=== PATIENT | male | born 1960 | race Caucasian/White ===

== ENCOUNTER 2020-10-30 15:00 | Outpatient (CLI) | payer MEDICAID | END 2020-10-30 15:01 | disposition critical access hospital (66) | LOC: EMS 15:00 | DX: Z00.8 Encounter for other general examination (principal) | CPT/HCPCS: A0425; A0429; A0999 ==

== ENCOUNTER 2020-10-30 15:15 | Emergency (ER) | payer MEDICAID ==
--- NOTE | 2020-10-30 15:26 | ED Physician Documentation ---
History of Present Illness - Stated complaint Stated Complaint: MHE - History obtained from History obtained from: Patient - Additonal information Additional information: 59-year-old gentleman who is quite healthy with no history of mental health issues presents with 2 days of hallucinations both auditory and visual. He has never had hallucinations before. The night before last he smoked a joint with a friend and wonders if it had something besides marijuana in it. He uses marijuana not infrequently but he is never had anything like this before. He is also been cutting down on his alcohol, but has not stopped cold turkey. No SI or HI. He was very anxious prior to arrival but feeling better now. Review of Systems Ten Systems: 10 systems reviewed and negative Constitutional: reports: Reviewed and negative Eyes: reports: Reviewed and negative Ears: reports: Reviewed and negative Nose: reports: Reviewed and negative PD PAST MEDICAL HISTORY - Present Medications Home Medications: Ambulatory Orders Medication Instructions Recorded Confirmed LORazepam [Ativan] 1 mg PO TID PRN #6 tablet 10/30/20 - Allergies Allergies/Adverse Reactions: Allergies Allergy/AdvReac Type Severity Reaction Status Date / Time No Known Drug Allergies Allergy Verified 10/30/20 15:26 PD ED PE NORMAL - Vitals Vital signs reviewed: Yes - General General: Alert and oriented X 3, Other (He does not appear shaky or like he is withdrawing. The lack of tachycardia and hypertension would also corroborate this.) - HEENT HEENT: PERRL, EOMI, Other (No tongue fasciculations) - Neck Neck: Supple, no meningeal sign, No bony TTP - Cardiac Cardiac: RRR, No murmur - Respiratory Respiratory: No respiratory distress, Clear bilaterally - Abdomen Abdomen: Non tender - Derm Derm: Normal color, Warm and dry - Neuro Neuro: Alert and oriented X 3, No motor deficit, No sensory deficit, Normal speech, Other (No asterixis) Results - Vitals Vitals: Vital Signs - 24 hr 10/30/20 15:22 Temperature 36.7 C Heart Rate 86 Respiratory 18 Rate Blood Pressure 121/74 O2 Saturation 99 Oxygen O2 Source Room air - Labs Labs: Laboratory Tests 10/30/20 10/30/20 10/30/20 15:32 15:32 15:32 WBC 8.3 RBC 4.17 L Hgb 13.1 L Hct 39.6 L MCV 95.0 H MCH 31.4 H MCHC 33.1 RDW 13.6 Plt Count 285 MPV 8.4 Neut # (Auto) 5.1 Lymph # (Auto) 2.3 Curry # (Auto) 0.8 Eos # (Auto) 0.1 Baso # (Auto) 0.0 Absolute Nucleated RBC 0.00 Nucleated RBC % 0.0 Sodium 138 Potassium 3.5 Chloride 101 Carbon Dioxide 27 Anion Gap 10.0 BUN 24 H Creatinine 0.9 Estimated GFR (MDRD) 86 L Glucose 112 H Calcium 9.3 Total Bilirubin 0.6 AST 21 ALT 26 Alkaline Phosphatase 44 Total Protein 7.0 Albumin 4.1 Globulin 2.9 Albumin/Globulin Ratio 1.4 Lipase 93 H TSH 1.10 Urine Color Urine Clarity Urine pH Ur Specific [place] Urine Protein Urine Glucose (UA) Urine Ketones Urine Occult Blood Urine Nitrite Urine Bilirubin Urine Urobilinogen Ur Leukocyte Esterase Urine RBC Urine WBC Ur Squamous Epith Cells Urine Bacteria Ur Microscopic Review Urine Culture Comments Salicylates < 6.0 Urine Opiates Screen Ur Oxycodone Screen Urine Methadone Screen Ur Propoxyphene Screen Acetaminophen < 10 L Ur Barbiturates Screen Ur Tricyclics Screen Ur Phencyclidine Scrn Ur Amphetamine Screen U Methamphetamines Scrn U Benzodiazepines Scrn Urine Cocaine Screen U Cannabinoids Screen Ethyl Alcohol < 5.0 10/30/20 17:38 WBC RBC Hgb Hct MCV MCH MCHC RDW Plt Count MPV Neut # (Auto) Lymph # (Auto) Curry # (Auto) Eos # (Auto) Baso # (Auto) Absolute Nucleated RBC Nucleated RBC % Sodium Potassium Chloride Carbon Dioxide Anion Gap BUN Creatinine Estimated GFR (MDRD) Glucose Calcium Total Bilirubin AST ALT Alkaline Phosphatase Total Protein Albumin Globulin Albumin/Globulin Ratio Lipase TSH Urine Color YELLOW Urine Clarity HAZY Urine pH 6.0 Ur Specific [place] >=1.030 H Urine Protein NEGATIVE Urine Glucose (UA) NEGATIVE Urine Ketones NEGATIVE Urine Occult Blood NEGATIVE Urine Nitrite POSITIVE H Urine Bilirubin NEGATIVE Urine Urobilinogen 0.2 (NORMAL) Ur Leukocyte Esterase TRACE H Urine RBC 0-5 Urine WBC >25 H Ur Squamous Epith Cells FEW Squamous Urine Bacteria Moderate H Ur Microscopic Review INDICATED Urine Culture Comments INDICATED Salicylates Urine Opiates Screen NEGATIVE Ur Oxycodone Screen NEGATIVE Urine Methadone Screen NEGATIVE Ur Propoxyphene Screen NEGATIVE Acetaminophen Ur Barbiturates Screen NEGATIVE Ur Tricyclics Screen NEGATIVE Ur Phencyclidine Scrn NEGATIVE Ur Amphetamine Screen NEGATIVE U Methamphetamines Scrn POSITIVE H U Benzodiazepines Scrn NEGATIVE Urine Cocaine Screen NEGATIVE U Cannabinoids Screen POSITIVE H Ethyl Alcohol PD MEDICAL DECISION MAKING - ED course ED course: 59-year-old gentleman presents with new onset hallucinosis which after subsequent work-up was demonstrated to be likely due to inadvertent methamphetamine use given to him by a friend. Given his age, differential diagnoses were considered, CT head was negative without mass, labs were otherwise basically normal, note made of pyuria but he has no urinary symptoms so treatment was not recommended nor offered. Departure - Departure Disposition: 01 Home, Self Care Clinical Impression: Hallucinosis, Methamphetamine intoxication Condition: Good Record reviewed to determine appropriate education?: Yes Prescriptions: LORazepam [Ativan] 1 mg PO TID PRN #6 tablet PRN Reason: Anxiety Comments: Try to get your marijuana from a reputable source. Return for new or worsening symptoms. Do not drink or drive while taking prescription Ativan.
[2020-10-30 15:37] LABS: BASOPHILS % (AUTO) 0.5 %; EOSINOPHILS # (AUTO) 0.1 10^3/uL (0.0-0.7); EOSINOPHILS % (AUTO) 0.7 %; HCT - HEMATOCRIT 39.6 % (42.0-52.0); HGB - HEMOGLOBIN 13.1 g/dL (14.0-18.0); LYMPHOCYTES # (AUTO) 2.3 10^3/uL (1.5-3.5); LYMPHOCYTES % (AUTO) 27.4 %; MEAN CORPUSCULAR HEMOGLOBIN 31.4 pg (27.0-31.0); MEAN CORPUSCULAR HGB CONC 33.1 g/dL (32.0-36.0); MEAN PLATELET VOLUME 8.4 fL (7.4-11.4); MONOCYTES # (AUTO) 0.8 10^3/uL (0.0-1.0); MONOCYTES % (AUTO) 9.6 %; NEUTROPHILS # (AUTO) 5.1 10^3/uL (1.5-6.6); NEUTROPHILS % (AUTO) 61.4 %; PLT - PLATELET COUNT 285 10^3/uL (130-450); RED BLOOD COUNT 4.17 10^6/uL (4.70-6.10); RED CELL DISTRIBUTION WIDTH 13.6 % (12.0-15.0); WHITE BLOOD COUNT 8.3 x10^3/uL (4.8-10.8)
[2020-10-30 16:02] LABS: ACETAMINOPHEN < 10 ug/mL (10-30); ALBUMIN 4.1 g/dL (3.2-5.5); ALBUMIN/GLOBULIN RATIO 1.4 (1.0-2.2); ALKALINE PHOSPHATASE 44 IU/L (42-121); ALT ALANINE AMINOTRANSFERASE 26 IU/L (10-60); AST ASPARTATE AMINOTRANSFERASE 21 IU/L (10-42); BILIRUBIN,TOTAL 0.6 mg/dL (0.2-1.0); BUN - BLOOD UREA NITROGEN 24 mg/dL (6-20); CALCIUM 9.3 mg/dL (8.5-10.3); CARBON DIOXIDE - CO2 27 mmol/L (21-32); CHLORIDE 101 mmol/L (101-111); CREATININE 0.9 mg/dL (0.6-1.2); ETOH - ETHANOL < 5.0 mg/dL; GFR - MDRD 86 (>89); GLUCOSE 112 mg/dL (70-100); LIPASE 93 U/L (22-51); POTASSIUM 3.5 mmol/L (3.5-5.0); SALICYLATE < 6.0 mg/dL; SODIUM 138 mmol/L (135-145)
--- NOTE | 2020-10-30 17:02 | CT Report ---
PROCEDURE: HEAD WO INDICATIONS: new onset hallucinosis TECHNIQUE: Noncontrast 4.5 mm thick angled axial sections acquired from the foramen magnum to the vertex. For r adiation dose reduction, the following was used: automated exposure control, adjustment of mA and/or kV according to patient size. COMPARISON: None. FINDINGS: Image quality: There is streak artifact seen through the skull base. CSF spaces: Basal cisterns are patent. No extra-axial fluid collections. Ventricles are normal in size and shape. Brain: No midline shift. No intracranial masses or hemorrhage. Davis-white matter interface is norm al. Skull and face: Calvarium and visualized facial bones are intact, without suspicious lesions. Sinuses: Visualized sinuses and mastoids are clear. IMPRESSION: Normal noncontrast head CT for age. Reviewed by: Reji Pryor MD on 10/30/2020 4:01 PM [facility] Approved by: Reji Pryor MD on 10/30/2020 4:01 PM [facility] Station ID: [id number]
[2020-10-30 17:43] LABS: MUDS CUTOFF CONCENTRATIONS CUTOFF CONC BELOW:
[2020-10-30 17:48] LABS: BILIRUBIN,URINE NEGATIVE (NEGATIVE); GLUCOSE, URINE (UA) NEGATIVE (NEGATIVE); KETONES,URINE (UA) NEGATIVE (NEGATIVE); LEUKOCYTE ESTERASE, URINE TRACE (NEGATIVE); NITRITE,URINE POSITIVE (NEGATIVE); OCCULT BLOOD,URINE NEGATIVE (NEGATIVE); PROTEIN,URINE NEGATIVE (NEGATIVE); UROBILINOGEN,URINE 0.2 (NORMAL) E.U./dL (NORMAL)
[2020-10-30 17:50] LABS: CLARITY,URINE HAZY (CLEAR)
[2020-10-30 18:00] LABS: BACTERIA,URINE Moderate /HPF (None Seen); COCAINE SCREEN URINE NEGATIVE (NEGATIVE); RBC,URINE 0-5 /HPF (0-5); SQUAMOUS EPITHELIAL CELL,UR FEW Squamous (<= Few); THC CANNABINOID SCREEN, URINE POSITIVE (NEGATIVE); WBC,URINE >25 /HPF (0-3)
[2020-10-30 18:01] LABS: AMPHETAMINE SCREEN,URINE NEGATIVE (NEGATIVE); BARBITURATE SCREEN,UR NEGATIVE (NEGATIVE); BENZODIAZEPINES SCREEN, URINE NEGATIVE (NEGATIVE); METHADONE SCREEN, URINE NEGATIVE (NEGATIVE); METHAMPHETAMINES SCREEN, URINE POSITIVE (NEGATIVE); OPIATE SCREEN, URINE NEGATIVE (NEGATIVE); OXYCODONE SCREEN, URINE NEGATIVE (NEGATIVE); PROPOXYPHENE SCREEN, URINE NEGATIVE (NEGATIVE); TRICYCLIC ANTIDEPRESSANT,URINE NEGATIVE (NEGATIVE)
[2020-10-30 19:00] VITALS: BP 143/101
== END 2020-10-30 19:06 | disposition home or self-care (01) ==
LOC: EDUNIT# → EDSEX → SUPCPDRO 15:15 → ED 15:15
DX: R44.0 Auditory hallucinations (principal); R44.1 Visual hallucinations; F15.929 Other stimulant use, unspecified with intoxication, unspecified
CPT/HCPCS: 36415; 80053; 80306; 80307; 80320; 80329; 81001; 81003; 83690; 84443; 85025; 87086; 87181; 99283; 99284

== ENCOUNTER 2020-11-03 12:27 | Emergency (ER) | payer MEDICAID ==
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
[2020-11-03 14:34] VITALS: BP 138/84
== END 2020-11-03 14:34 | disposition home or self-care (01) ==
LOC: ED 12:27
DX: S43.101A Unspecified dislocation of right acromioclavicular joint, initial encounter (principal); V18.0XXA Pedal cycle driver injured in noncollision transport accident in nontraffic accident, initial encounter; Y93.55 Activity, bike riding; Y92.830 Public park as the place of occurrence of the external cause
CPT/HCPCS: 99283; 99284

== ENCOUNTER 2021-03-31 13:31 | Outpatient (CLI) | payer MEDICAID ==
--- NOTE | 2021-03-31 14:32 | XRAY Report ---
PROCEDURE: Shoulder 3 View RT INDICATIONS: RIGHT SHOULDER PAIN TECHNIQUE: 3 views of the shoulder were acquired. COMPARISON: X-ray shoulder 11/03/2020 FINDINGS: Bones: There is increased widening at the acromioclavicular joint space measuring approximately 1.1 c m. There is an irregular osseous appearance of the distal right clavicle and acromial compared to ines or exam and demonstrates increased superior subluxation. No suspicious bony lesions. Visualized ribs appear intact. Soft tissues: No suspicious soft tissue calcifications. IMPRESSION: 1. Increased acromioclavicular distance as well as superior subluxation and osseous changes of the di stal right clavicle. Recommend correlation to recent surgical intervention. Otherwise, appearance shields ses concern for sprain. Bony changes within the distal clavicle and acromion could also represent pos tsurgical/posttraumatic changes versus erosion secondary to infection or inflammation if clinically a ppropriate. Reviewed by: Lizet Obando MD on 03/31/2021 2:31 PM PDT Approved by: Lizet Obando MD on 03/31/2021 2:31 PM PDT Station ID: [id number]
== END 2021-03-31 13:32 ==
LOC: DI.N 13:31
PROVIDERS: ATTEND Orthopaedic Surgery
DX: S43.111A Subluxation of right acromioclavicular joint, initial encounter (principal); R93.6 Abnormal findings on diagnostic imaging of limbs

== ENCOUNTER 2021-11-20 10:34 | Outpatient (CLI) | payer MEDICAID ==
--- NOTE | 2021-11-20 17:00 | MRI Report ---
PROCEDURE: Shoulder RT W/O INDICATIONS: RIGHT ROTATOR CUFF SYNDROME TECHNIQUE: Noncontrast oblique coronal T2 fast spin echo with fat saturation, oblique sagittal T1 spin echo and T2 fast spin echo with fat saturation, axial T1 spin echo and T2 fast spin echo with fat saturation t hrough the shoulder. COMPARISON: None. FINDINGS: Image quality: Excellent. Rotator cuff: There is mild T2 signal elevation throughout the supraspinatus and infraspinatus tendon s at the humeral insertion sites extending the muscular tendinous junctions, indicating tendinopathy. Superimposed high-grade pinhole tearing of the anterior supraspinatus tendon at the humeral insertio n site. Moderate grade intrasubstance tearing of the posterior supraspinatus tendon at the humeral in sertion site. Low-grade partial-thickness intrasubstance and bursal surface tearing of the mid and an terior infraspinatus tendon at the humeral insertion site extending the muscular tendinous junction. Low-grade partial-thickness articular surface tearing of the mid, inferior, and superior aspects of t he subscapularis tendon at the humeral insertion site. Teres minor tendon is intact. No rotator cuff atrophy. Bones and bursae: No bone marrow contusions or fractures. Acromioclavicular interval is widened to 1 3 mm. Mild acromioclavicular joint degeneration. The acromion demonstrates conventional anatomy, wit hout an os acromiale. No pathologic subacromial/subdeltoid bursal fluid is present. Capsule and soft tissues: Diffuse degenerative fraying of the glenoid labrum. The long head of the bi ceps tendon demonstrates normal location and morphology. The rotator interval appears normal, withou t fibrosis. The coracohumeral ligament is normal in thickness. IMPRESSION: 1. Supraspinatus and infraspinatus tendinopathy. 2. Full-thickness tearing of the anterior supraspinatus. Partial-thickness tearing of the remainder o f the supraspinatus, infraspinous, and subscapularis tendons. 3. Acromioclavicular joint osteoarthritis. Acromial clavicular separation. 4. Diffuse degenerative fraying of the glenoid labrum. Reviewed by: Derick Vanegas MD on 11/20/2021 4:59 PM PDT Approved by: Derick Vanegas MD on 11/20/2021 4:[address] [facility] Station ID: [id number]
== END 2021-11-20 10:35 | disposition home or self-care (01) ==
LOC: DI 10:34
PROVIDERS: ATTEND Orthopaedic Surgery
DX: M75.121 Complete rotator cuff tear or rupture of right shoulder, not specified as traumatic (principal); M19.011 Primary osteoarthritis, right shoulder

== ENCOUNTER 2022-09-25 16:12 | Outpatient (CLI) | payer MEDICAID | END 2022-09-25 16:13 | disposition left against medical advice (07) | LOC: EMS 16:12 | DX: T40.1X1A Poisoning by heroin, accidental (unintentional), initial encounter (principal) ==

== ENCOUNTER 2023-03-10 01:02 | Emergency (ER) | payer MEDICAID ==
--- NOTE | 2023-03-10 01:23 | ED Physician Documentation ---
PD HPI HEENT - Stated complaint Stated Complaint: EAR PX/PUGA - Chief complaint Chief Complaint: Heent - History obtained from History obtained from: Patient - Additional information Additional information: HPI from patient. Patient c/o bilateral ear pain but predominantly left-sided. Initially he says this started last night, but he goes on to describe the symptoms being present for at least the past several days. He also describes dizziness, "hissing" (per patient) sound; the dizziness and hissing has been intermittent for several days without inciting/exacerbating/ameliorating factors. He denies injury, denies discharge from either ear. HPI is somewhat challenging, as patient frequently tangential, asking about cochlear implants and whether it would be possible for him to have a cochlear implant without his knowledge. He also says he recently came across a piece of paper within his possessions that had the word ricin on it. PD PAST MEDICAL HISTORY - Past Medical History Past Medical History: No - Past Surgical History Past Surgical History: Yes General: Cholecystectomy - Present Medications Home Medications: Ambulatory Orders Medication Instructions Recorded Confirmed Meloxicam [Mobic] 7.5 mg PO BID PRN #20 tablet 11/03/20 - Allergies Allergies/Adverse Reactions: Allergies Allergy/AdvReac Type Severity Reaction Status Date / Time No Known Drug Allergies Allergy Verified 11/03/20 13:13 - Social History Does the pt smoke?: No Smoking Status: Never smoker Does the pt drink ETOH?: Yes Does the pt have substance abuse?: No - Immunizations Immunizations are current?: No - POLST Patient has POLST: No PD ED PE NORMAL - Vitals Vital signs reviewed: Yes - General General: Alert and oriented X 3, No acute distress, Well developed/nourished - HEENT HEENT: Other (bilateral EOC are narrow. trace erythema right EOC, mild erythema left EOC. both TMs are unremarkable. There is a small flesh-colored pedunculated lesion in left EOC) Results - Vitals Vitals: Vital Signs - 24 hr 03/10/23 01:08 Temperature 36.7 C Heart Rate 86 Respiratory 16 Rate Blood Pressure 162/110 H O2 Saturation 96 Oxygen O2 Source Room air PD Medical Decision Making - ED course Complexity details: considered differential, d/w patient ED course: mild erythema of left EOC; given cortisporin otic (drops instilled bilaterally in ED, given trace erythema of right EOC, but instructed to use them on the left ear for next 5 days, given symptoms are predominantly left-sided with correlative findings on exam). The flesh-colored lesion in the left EOC is uncertain significance, but does not appear to be infectious (no erythema or swelling focal to the lesion). Patient is homeless. He has paranoid delusions as noted in HPI, asking about cochlear implants and whether it's possible he has had one implanted without his knowledge. He also is preoccupied with a piece of paper he says he recently found within his possessions that had the word "ricin" on it. He is calm and amenable to reassurance at this time, not endorsing SI/HI. He is cooperative and follows instructions and there is no indication of immediate danger to self or others. Departure - Departure Disposition: 01 Home, Self Care Clinical Impression: Otitis externa Qualifiers: Otitis externa type: unspecified type Chronicity: acute Laterality: left Qualified Code(s): H60.502 - Unspecified acute noninfective otitis externa, left ear Condition: Good Instructions: ED Otitis Externa Comments: Use the antibiotic drops as follows: 4 drops in left ear three times per day for one week Forms: PCP List Discharge Date/Time: 03/10/23 02:21
[2023-03-10 01:26] VITALS: BP 162/110; O2SAT 96
[2023-03-10] MEDS: NEOMYCIN/POLYMYX/HC OTIC DROPS EACHEAR STA (02:15)
== END 2023-03-10 02:21 | disposition home or self-care (01) ==
LOC: ED 01:02
DX: H60.502 Unspecified acute noninfective otitis externa, left ear (principal)
CPT/HCPCS: 99283; A9270

== ENCOUNTER 2023-04-04 19:54 | Outpatient (CLI) | payer MEDICAID | END 2023-04-04 19:55 | disposition critical access hospital (66) | LOC: EMS 19:54 | DX: R06.00 Dyspnea, unspecified (principal); R05.9 Cough, unspecified; Z59.00 Homelessness unspecified | CPT/HCPCS: A0425; A0429; A0999 ==

== ENCOUNTER 2023-04-04 20:18 | Emergency (ER) | payer MEDICAID ==
[2023-04-04 20:48] LABS: BASOPHILS % (AUTO) 0.1 %; EOSINOPHILS # (AUTO) 0.1 10^3/uL (0.0-0.7); EOSINOPHILS % (AUTO) 0.8 %; HCT - HEMATOCRIT 36.1 % (42.0-52.0); HGB - HEMOGLOBIN 11.8 g/dL (14.0-18.0); LYMPHOCYTES # (AUTO) 2.6 10^3/uL (1.5-3.5); MEAN CORPUSCULAR HEMOGLOBIN 29.9 pg (27.0-31.0); MEAN CORPUSCULAR HGB CONC 32.7 g/dL (32.0-36.0); MEAN CORPUSCULAR VOLUME 91.6 fL (80.0-94.0); MEAN PLATELET VOLUME 8.9 fL (7.4-11.4); MONOCYTES # (AUTO) 0.7 10^3/uL (0.0-1.0); MONOCYTES % (AUTO) 9.1 %; NEUTROPHILS # (AUTO) 4.1 10^3/uL (1.5-6.6); NEUTROPHILS % (AUTO) 54.9 %; PLT - PLATELET COUNT 223 10^3/uL (130-450); RED BLOOD COUNT 3.94 10^6/uL (4.70-6.10); RED CELL DISTRIBUTION WIDTH 13.3 % (12.0-15.0); WHITE BLOOD COUNT 7.4 x10^3/uL (4.8-10.8)
--- NOTE | 2023-04-04 20:55 | ED Physician Documentation ---
PD HPI DYSPNEA - Stated complaint Stated Complaint: COUGHING BROWN STUFF, SOA - Chief complaint Chief Complaint: Resp - History obtained from History obtained from: Patient - Additional information Additional information: Patient is a 62-year-old male presenting for evaluation of 2 days of feeling short of air, cough and fatigue. Denies any known fevers. Reports his cough is productive of phlegm. Yesterday was darker in color, brownish but today it is more clear. No chest pain, abdominal pain, vomiting or leg swelling.Patient denies any drug or alcohol use. Review of Systems Constitutional: denies: Fever Cardiac: denies: Chest pain / pressure Respiratory: reports: Dyspnea, Cough GI: denies: Abdominal Pain, Vomiting PD PAST MEDICAL HISTORY - Past Surgical History Past Surgical History: Yes General: Cholecystectomy - Present Medications Home Medications: Ambulatory Orders Medication Instructions Recorded Confirmed No Known Home Medications 04/04/23 04/04/23 - Allergies Allergies/Adverse Reactions: Allergies Allergy/AdvReac Type Severity Reaction Status Date / Time No Known Drug Allergies Allergy Verified 04/04/23 21:21 - Social History Does the pt smoke?: No Smoking Status: Never smoker Does the pt drink ETOH?: Yes Does the pt have substance abuse?: No - Immunizations Immunizations are current?: No - POLST Patient has POLST: No PD ED PE NORMAL - General General: Alert and oriented X 3, No acute distress, Well developed/nourished - HEENT HEENT: Atraumatic, Moist mucous membranes, Pharynx benign - Neck Neck: Supple, no meningeal sign - Cardiac Cardiac: RRR, No murmur - Respiratory Respiratory: No respiratory distress, Clear bilaterally - Abdomen Abdomen: Soft, Non tender - Derm Derm: Warm and dry - Neuro Neuro: Normal speech Results - Vitals Vitals: Vital Signs - 24 hr 04/04/23 04/04/23 20:42 22:15 Temperature 37.0 C Heart Rate 90 73 Respiratory 18 16 Rate Blood Pressure 143/93 H 149/89 H O2 Saturation 96 100 Oxygen O2 Source Room air - EKG (time done) 2111 EKG releavant findings:: EKG personally interpreted by author of this note. Relevant findings are: Rate 84, normal sinus rhythm, no STEMI, no ST depressions - Labs Labs: Laboratory Tests 04/04/23 04/04/23 04/04/23 20:35 20:35 20:35 WBC 7.4 RBC 3.94 L Hgb 11.8 L Hct 36.1 L MCV 91.6 MCH 29.9 MCHC 32.7 RDW 13.3 Plt Count 223 MPV 8.9 Neut # (Auto) 4.1 Lymph # (Auto) 2.6 [place] # (Auto) 0.7 Eos # (Auto) 0.1 Baso # (Auto) 0.0 Absolute Nucleated RBC 0.00 Nucleated RBC % 0.0 Sodium 134 L Potassium 3.6 Chloride 101 Carbon Dioxide 28 Anion Gap 5.0 L BUN 25 H Creatinine 0.9 Estimated GFR (MDRD) 85 L Glucose 100 Calcium 9.4 Total Bilirubin 0.6 AST 18 ALT 14 Alkaline Phosphatase 46 B-Natriuretic Peptide 21 Total Protein 6.2 L Albumin 3.9 Globulin 2.3 Albumin/Globulin Ratio 1.7 Nasal Adenovirus (PCR) Nasal B. parapertussis DNA (PCR) Nasal Coronavir 229E PCR Nasal Coronavir HKU1 PCR Nasal Coronavir NL63 PCR Nasal Coronavir OC43 PCR Nasal Enterovir/Rhinovir PCR Nasal Influenza B PCR Nasal Influenza A PCR Nasal Parainfluen 1 PCR Nasal Parainfluen 2 PCR Nasal Parainfluen 3 PCR Nasal Parainfluen 4 PCR Nasal RSV (PCR) Nasal B.pertussis DNA PCR Nasal C.pneumoniae (PCR) Fabián Human Metapneumo PCR Nasal M.pneumoniae (PCR) Nasal SARS-CoV-2 (PCR) 04/04/23 20:57 WBC RBC Hgb Hct MCV MCH MCHC RDW Plt Count MPV Neut # (Auto) Lymph # (Auto) [place] # (Auto) Eos # (Auto) Baso # (Auto) Absolute Nucleated RBC Nucleated RBC % Sodium Potassium Chloride Carbon Dioxide Anion Gap BUN Creatinine Estimated GFR (MDRD) Glucose Calcium Total Bilirubin AST ALT Alkaline Phosphatase B-Natriuretic Peptide Total Protein Albumin Globulin Albumin/Globulin Ratio Nasal Adenovirus (PCR) NOT DETECTED Nasal B. parapertussis DNA (PCR) NOT DETECTED Nasal Coronavir 229E PCR NOT DETECTED Nasal Coronavir HKU1 PCR NOT DETECTED Nasal Coronavir NL63 PCR NOT DETECTED Nasal Coronavir OC43 PCR NOT DETECTED Nasal Enterovir/Rhinovir PCR NOT DETECTED Nasal Influenza B PCR NOT DETECTED Nasal Influenza A PCR NOT DETECTED Nasal Parainfluen 1 PCR NOT DETECTED Nasal Parainfluen 2 PCR NOT DETECTED Nasal Parainfluen 3 PCR NOT DETECTED Nasal Parainfluen 4 PCR NOT DETECTED Nasal RSV (PCR) NOT DETECTED Nasal B.pertussis DNA PCR NOT DETECTED Nasal C.pneumoniae (PCR) NOT DETECTED Fabián Human Metapneumo PCR NOT DETECTED Nasal M.pneumoniae (PCR) NOT DETECTED Nasal SARS-CoV-2 (PCR) DETECTED A PD Medical Decision Making - ED course Complexity details: reviewed results, re-evaluated patient, d/w patient ED course: Patient is a 62-year-old male with no significant prior medical history presenting for evaluation of feeling short of air, cough, fatigue. His vital signs are stable. His lungs are clear. I reviewed his chest x-ray. There is mild cardiomegaly but no signs of fluid overload. No chest pain to suggest ACS. No symptoms to suggest a pulmonary embolism. Patient is positive for COVID. I did review these results with him. This time he is not requiring hospitalizations recommended continued supportive care. He is advised on concerning symptoms to return for. Departure - Departure Disposition: 01 Home, Self Care Clinical Impression: COVID-19 Condition: Stable Instructions: ED Viral Syndrome Comments: You have tested positive for COVID-19. At this time you do not require hospitalization and the treatment is mainly supportive. This means rest, hydration, ibuprofen or acetaminophen as needed for fevers or pains. Return to the emergency department with worsening symptoms such as feeling short of air. Forms: PCP List Discharge Date/Time: 04/04/23 22:15
--- NOTE | 2023-04-04 20:58 | XRAY Report ---
PROCEDURE: Chest 1 View X-Ray INDICATIONS: SOA TECHNIQUE: One view of the chest was acquired. COMPARISON: None. FINDINGS: Surgical changes and devices: None. Lungs and pleura: No pleural effusions or pneumothorax. Lungs are clear. Mediastinum: Cardiac silhouette is mildly enlarged. Bones and chest wall: No suspicious bony lesions. Overlying soft tissues appear unremarkable. IMPRESSION: Cardiac silhouette is enlarged without definite evidence of pulmonary vascular congestion. No suspici ous focal airspace opacity identified. Reviewed by: Rony Castanon MD on 04/04/2023 8:57 PM PDT Approved by: Rony Castanon MD on 04/04/2023 8:57 PM PDT Station ID: [id number]
[2023-04-04 21:03] LABS: ALBUMIN 3.9 g/dL (3.2-5.5); ALBUMIN/GLOBULIN RATIO 1.7 (1.0-2.2); BILIRUBIN,TOTAL 0.6 mg/dL (0.2-1.0); CALCIUM 9.4 mg/dL (8.5-10.3); CREATININE 0.9 mg/dL (0.6-1.3); POTASSIUM 3.6 mmol/L (3.5-4.5); TOTAL PROTEIN 6.2 g/dL (6.4-8.9)
[2023-04-04] MEDS ORDERED: SODIUM CHLORIDE 0.9% 1,000 ML IV STA (21:13)
[2023-04-04 21:59] LABS: CORONAVIRUS 229E-RESP PCR NOT DETECTED; CORONAVIRUS HKU1-RESP PCR NOT DETECTED; CORONAVIRUS NL63-RESP PCR NOT DETECTED; CORONAVIRUS OC43-RESP PCR NOT DETECTED
[2023-04-04 22:01] LABS: B. PARAPERTUSSIS- RESP PCR PAN NOT DETECTED; B. PERTUSSIS- RESP PCR PANEL NOT DETECTED; C. PNEUMONIAE- RESP PCR PANEL NOT DETECTED; HUMAN METAPNEUMOVIRUS NOT DETECTED; INFLUENZA A- RESP PCR PANEL NOT DETECTED; INFLUENZA B - RESP PCR PANEL NOT DETECTED; M. PNEUMONIAE- RESP PCR PANEL NOT DETECTED; PARAINFLUENZA VIRUS 1 NOT DETECTED; PARAINFLUENZA VIRUS 2 NOT DETECTED; PARAINFLUENZA VIRUS 3 NOT DETECTED; PARAINFLUENZA VIRUS 4 NOT DETECTED; RHINOVIRUS/ENTEROVIRUS NOT DETECTED; RSV- RESP PCR PANEL NOT DETECTED; SARS-CoV-2 -RESP PCR PANEL DETECTED
[2023-04-04 22:30] VITALS: BP 149/89; O2SAT 100
== END 2023-04-04 22:15 | disposition home or self-care (01) ==
LOC: EDUNIT# → ED 20:18
DX: U07.1 COVID-19 (principal)
CPT/HCPCS: 36415; 80053; 83880; 85025; 87633; 93005; 99283; 99284

== ENCOUNTER 2023-05-03 16:18 | Outpatient (CLI) | payer MEDICAID | END 2023-05-03 16:19 | disposition critical access hospital (66) | LOC: EMS 16:18 | DX: R41.0 Disorientation, unspecified (principal); R44.8 Other symptoms and signs involving general sensations and perceptions | CPT/HCPCS: A0425; A0429; A0999 ==

== ENCOUNTER 2023-05-03 16:41 | Emergency (ER) | payer MEDICAID ==
[2023-05-03 16:58] VITALS: O2SAT 100
--- NOTE | 2023-05-03 17:55 | ED Physician Documentation ---
History of Present Illness - Stated complaint Stated Complaint: MHE - Chief complaint Chief Complaint: MHE - History obtained from History obtained from: Patient - Additonal information Additional information: 62-year-old male presents by EMS reportedly for evaluation of hallucinations. Patient told EMS that he was hallucinating and having trouble sleeping. He does endorse amphetamine use recently. On arrival patient endorsed to nursing staff that he just needed a place to sleep as he has not been able to sleep for several days. Review of Systems Constitutional: denies: Fever, Chills Neurologic: denies: Generalized weakness, Focal weakness Psychiatric: reports: Hallucinations, Insomnia. denies: Depressed, Suicidal, Homicidal PD PAST MEDICAL HISTORY - Past Medical History Past Medical History: Yes Cardiovascular: Hypertension Respiratory: None Neuro: None Endocrine/Autoimmune: None GI: None : None HEENT: None Musculoskeletal: None Derm: None - Past Surgical History Past Surgical History: Yes General: Cholecystectomy - Present Medications Home Medications: Ambulatory Orders Medication Instructions Recorded Confirmed No Known Home Medications 04/04/23 05/03/23 - Allergies Allergies/Adverse Reactions: Allergies Allergy/AdvReac Type Severity Reaction Status Date / Time No Known Drug Allergies Allergy Verified 05/03/23 16:51 - Social History Does the pt smoke?: No Smoking Status: Never smoker Does the pt drink ETOH?: Yes Does the pt have substance abuse?: Yes Substance Use and Type: Meth - Immunizations Immunizations are current?: No - POLST Patient has POLST: No PD ED PE NORMAL - Vitals Vital signs reviewed: Yes - General General: Alert and oriented X 3, No acute distress, Other (Disheveled, hygiene poor, appears older than stated age) - Cardiac Cardiac: RRR - Respiratory Respiratory: No respiratory distress, Clear bilaterally - Abdomen Abdomen: Soft, Non distended - Derm Derm: Normal color, Warm and dry, No rash - Extremities Extremities: No deformity, No tenderness to palpate - Neuro Neuro: Alert and oriented X 3, 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 States he is having hallucinations but does endorse meth use and these hallucinations are chronic. Explained to the patient that we could not provide a place for the patient to sleep tonight. He was referred to homeless shelters in the area. Patient states that he is aware of the homeless shelters and will take the bus to [place] Departure - Departure Disposition: 01 Home, Self Care Clinical Impression: Amphetamine use, Hallucinations, Homelessness unspecified Condition: Stable Instructions: Abuse Meth Abuse and Addiction Forms: PCP List Discharge Date/Time: 05/03/23 18:05
[2023-05-03 18:10] VITALS: BP 150/80
== END 2023-05-03 18:05 | disposition home or self-care (01) ==
LOC: EDSEX → EDUNIT# → ED 16:41
DX: F15.90 Other stimulant use, unspecified, uncomplicated (principal); R44.3 Hallucinations, unspecified; I10 Essential (primary) hypertension; Z59.00 Homelessness unspecified
CPT/HCPCS: 99282; 99283

== ENCOUNTER 2023-08-13 15:13 | Outpatient (CLI) | payer MEDICAID | END 2023-08-13 15:14 | disposition left against medical advice (07) | LOC: EMS 15:13 | DX: Z03.89 Encounter for observation for other suspected diseases and conditions ruled out (principal) ==

== ENCOUNTER 2023-08-29 14:45 | Outpatient (CLI) | payer MEDICAID | END 2023-08-29 14:46 | disposition critical access hospital (66) | LOC: EMS 14:45 | DX: R69 Illness, unspecified (principal); R45.4 Irritability and anger; F15.90 Other stimulant use, unspecified, uncomplicated | CPT/HCPCS: A0425; A0429; A0999 ==

== ENCOUNTER 2023-08-29 14:58 | Emergency (ER) | payer MEDICAID ==
[2023-08-29 15:42] VITALS: BP 171/108; O2SAT 98
== END 2023-08-29 17:13 | disposition left against medical advice (07) ==
LOC: ED 14:58
DX: Z53.21 Procedure and treatment not carried out due to patient leaving prior to being seen by health care provider (principal)

== ENCOUNTER 2024-02-22 10:00 | Outpatient (CLI) | payer MEDICAID, MEDICARE ==
--- NOTE | 2024-02-22 15:48 | XRAY Report ---
Cervical Spine 2-3V HISTORY: 63 years of age, MUSCLE SPASM OF NECK TECHNIQUE: Cervical Spine 2-3V COMPARISON: None. FINDINGS/IMPRESSION: Reversal of abnormal cervical spinal lordosis. Mild anterolisthesis of C3 on C4, C4 on C5 and C5 on C 6. Vertebral body heights are well-maintained. Multilevel, mild degenerative disc disease of the cerv ical spine, most pronounced in the lower cervical spine. No prevertebral soft tissue edema. Moderate bilateral cervical facet arthropathy. Lateral masses C1-2 are well aligned. Reviewed by: Dariela Leary MD on 02/22/2024 3:46 PM PDT Approved by: Dariela Leary MD on 02/22/2024 3:46 PM PDT Station ID: [id number]
== END 2024-02-22 10:15 | disposition home or self-care (01) ==
LOC: DI.N 10:00
PROVIDERS: ATTEND Family Medicine
DX: M62.838 Other muscle spasm (principal); M43.12 Spondylolisthesis, cervical region; M50.30 Other cervical disc degeneration, unspecified cervical region; M47.812 Spondylosis without myelopathy or radiculopathy, cervical region